=== PATIENT | female | born 1955 | race Caucasian/White ===

== ENCOUNTER 2020-07-01 09:37 | Outpatient (CLI) | payer MEDICARE | END 2020-07-01 09:38 | disposition home or self-care (01) | LOC: CSHMAMMO 09:37 | PROVIDERS: ATTEND Nurse Practitioner Family | DX: Z12.31 Encounter for screening mammogram for malignant neoplasm of breast (principal); R92.8 Other abnormal and inconclusive findings on diagnostic imaging of breast | CPT/HCPCS: 77063; 77067 ==

== ENCOUNTER 2021-04-08 15:12 | Outpatient (CLI) | payer MEDICARE | END 2021-04-08 15:13 | disposition home or self-care (01) | LOC: CSHRAD 15:12 | PROVIDERS: ATTEND Family Medicine | DX: M25.552 Pain in left hip (principal) ==